=== PATIENT | female | born 1995 | race Caucasian/White ===

== ENCOUNTER 2016-12-28 18:12 | Emergency (ER) | payer OTHER ==
[~2016-12-28] VITALS: Ht 154.9 cm; Wt 45.8 kg
[~2016-12-28 18:12] MED LIST: FLEXERIL10 MG PO; TRAMADOL HCL50 MG PO; [UNRECOGNIZED DRUG - OTHER] PO
[2016-12-28] MEDS ORDERED: NAPROSYN500 MG PO (18:52)
[2016-12-28] MEDS ORDERED: CLEOCIN300 MG PO (18:52)
[2016-12-28 19:45] VITALS: BP 125/85
== END 2016-12-28 19:46 | disposition home or self-care (01) ==
LOC: EME 18:12
DX: K04.7 Periapical abscess without sinus (principal); L03.211 Cellulitis of face
CPT/HCPCS: 99281; 99284; J1885

== ENCOUNTER 2016-12-29 10:13 | Emergency (ER) | payer OTHER ==
[~2016-12-29] VITALS: Ht 154.9 cm; Wt 45.4 kg
[~2016-12-29 10:13] MED LIST changes: +CLEOCIN300 MG PO; +NAPROSYN500 MG PO
[2016-12-29 10:27] VITALS: BP 119/74
== END 2016-12-29 11:12 | disposition home or self-care (01) ==
LOC: EME 10:13
PROC: 0C96XZZ Drainage of Lower Gingiva, External Approach (ICD-10-PCS; principal; 2016-12-29)
DX: K04.7 Periapical abscess without sinus (principal); F17.200 Nicotine dependence, unspecified, uncomplicated
CPT/HCPCS: 99281; 99284

== ENCOUNTER 2017-04-17 18:25 | Emergency (ER) | payer OTHER ==
[~2017-04-17] VITALS: Ht 160 cm; Wt 44.0 kg
[2017-04-17 21:22] LABS: HEMATOCRIT 30.9 % (36.0-46.0); MCH 28.1 PG (29.0-34.0); MCHC 33.3 G/DL (30.0-36.0); MCV 84.2 FL (83-99); MEAN PLAT.VOLUME 8.5 uM^3 (9.5-12.4); PLATELET COUNT 256 K/uL (156-360); RBC DIS.WIDTH-CV 14.9 % (11.8-14.6); RED BLOOD COUNT 3.67 M/uL (3.80-5.20); WHITE BLOOD COUNT 8.1 K/uL (4.1-10.2)
[2017-04-17 21:35] LABS: CHLORIDE 107 mEq/L (99-109); POTASSIUM 3.7 mEq/L (3.7-5.4); SODIUM 135 mEq/L (136-147)
[2017-04-17 21:36] LABS: GLUCOSE 87 mg/dL (70-99)
[2017-04-17 21:37] LABS: ANION GAP 8 MEQ/L (2-14)
[2017-04-17 21:38] LABS: TOTAL BILIRUBIN 0.3 mg/dL (0.0-1.0)
[2017-04-17 21:39] LABS: ALKALINE PHOSPHATASE 59 IU/L (3-129); GFR ESTIMATE (CALCULATED) > 59 mL/min/
[2017-04-17 21:41] LABS: UREA NITROGEN (BUN) 11 mg/dL (9-23)
[2017-04-17 21:50] LABS: QUANTITATIVE HCG < 4.0 MIU/ML
[2017-04-17 23:38] LABS: ADD MIUA? YES; BILIRUBIN NEGATIVE; BLOOD MODERATE; COLOR YELLOW ((YELLOW)); GLUCOSE (STRIP) NEGATIVE; KETONES NEGATIVE; LEUKOCYTES NEGATIVE; NITRITE NEGATIVE; PROTEIN (STRIP) NEGATIVE; SPECIFIC GRAVITY 1.005 (1.000-1.030); UROBILINOGEN 0.2 MG/DL (0.2-1.0)
[2017-04-17 23:41] LABS: BACTERIA RARE /HPF; EPITHELIAL CELLS 2+ /HPF; MUCUS NONE SEEN /LPF; UCUL ADDED? NO; WHITE BLOOD CELLS 0-5 /HPF (0-5)
[2017-04-18] VITALS: BP 118/68
== END 2017-04-18 00:01 | disposition home or self-care (01) ==
LOC: EME 18:25
PROVIDERS: Physician Assistant
DX: R20.2 Paresthesia of skin (principal); F17.200 Nicotine dependence, unspecified, uncomplicated
CPT/HCPCS: 80053; 81003; 82607; 84443; 84702; 85027; 93925; 99281; 99284

== ENCOUNTER → 2017-05-26 | Outpatient (CLI) | payer OTHER ==
[2017-05-26 17:24] LABS: APPEARANCE CLEAR/COLORLESS; RED CELL AREA COUNTED 18; RED CELL COUNT 4 /MM^3 (0-1); RED CELL DILUTION 1; WBC AREA COUNTED 18; WBC DILUTION 1; WHITE CELL COUNT 6 /MM^3 (0-5); WHITE CELL RAW COUNT 10
[2017-05-26 19:30] LABS: CSF EOSINOPHILS 0 % (0-25); MONO RAW COUNT 12; MONONUCLEAR WBC'S 100 % (50-90); POLYNUCLEAR WBC'S 0 % (0-3)
[2017-05-26 19:31] LABS: SPINAL FLD COMMENT RARE MONOS SEEN
[2017-05-27 23:08] LABS: Albumin, Serum 4.3 g/dL (3.7-5.1); IgG Index, CSF 0.74 index (<0.66); Synthesis Rate IgG, CSF -0.8 mg/24 h (-9.9-3.3)
== END | disposition home or self-care (01) ==
LOC: RAD 15:00
PROVIDERS: Psychiatry & Neurology Clinical Neurophysiology
PROC: 009U3ZZ Drainage of Spinal Canal, Percutaneous Approach (ICD-10-PCS; principal; 2017-05-26)
DX: G37.9 Demyelinating disease of central nervous system, unspecified (principal); A69.20 Lyme disease, unspecified
CPT/HCPCS: 62270; 77003; 82945; 83873 90; 83916 90; 84157; 87070; 87205; 89051